=== PATIENT | male | born 1975 ===

== ENCOUNTER 2017-12-25 18:42 | Emergency (ER) | payer SELFPAY ==
[~2017-12-25] VITALS: Ht 170.2 cm; Wt 113.4 kg
[2017-12-25] MEDS ORDERED: ACETAMINOPHEN 500 MG TAB (TYLENOL) PO ONE (19:00)
[2017-12-25] MEDS ORDERED: IBUPROFEN 800 MG (MOTRIN) TAB PO ONE (19:00)
--- NOTE | 2017-12-25 19:00 | ED Upper Extremity ---
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 He fell at home just prior to arrival landing on the right shoulder. He is now unable to move it due to the pain. He did have two 24 ounce beers this evening Onset: this evening Severity: moderate Pain/Injury Location: right shoulder Modifying Factors: Worse With Movement Allergies and Home Medications Allergies Coded Allergies: No Known Drug Allergies (Unverified , 12/25/17) Home Medications Hydrocodone/Acetaminophen 1 Each Tablet, 1 EACH PO Q4H PRN for PAIN-MODERATE TO SEVERE Prescribed by: CYNTHIA DAVIS on 12/25/17 193 Patient Home Medication List Home Medication List Reviewed: Yes Constitutional: see HPI EENTM: see HPI Respiratory: no symptoms reported Cardiovascular: no symptoms reported Genitourinary: no symptoms reported Musculoskeletal: see HPI Skin: no symptoms reported Psychiatric/Neurological: No Symptoms Reported Past Gxlnehu-Ggtfbm-Bjrpby Hx Patient Social History Recent Foreign Travel: No Contact w/Someone Who Travel: No Physical Exam Vital Signs Capillary Refill : General Appearance: WD/WN, no apparent distress HEENT: PERRL/EOMI, normal ENT inspection Neck: non-tender, full range of motion Respiratory: normal breath sounds, no respiratory distress, no accessory muscle use Gastrointestinal: normal bowel sounds, non tender Shoulder: normal inspection, limited ROM, pain, soft tissue tenderness Elbow/Forearm: normal inspection, non-tender Wrist: Yes normal inspection, Yes non-tender (radial pulse is +2 equal bilaterally.) Hand: normal inspection, non-tender Neurologic/Psychiatric: alert, normal mood/affect, oriented x 3 Skin: normal color, warm/dry Progress/Results/Core Measures Results/Orders My Orders Orders - CYNTHIA DAVIS APRN Ibuprofen Tablet (Motrin Tablet) (12/25/17 19:00) Chest 1 View, Ap/Pa Only (12/25/17 18:56) Shoulder, Right, 3 Views (12/25/17 18:56) Acetaminophen Tablet (Tylenol Tablet) (12/25/17 19:00) Clonidine Tablet (Catapres Tablet) (12/25/17 19:15) Clonidine Tablet (Catapres Tablet) (12/25/17 19:02) Fentanyl Injection (Sublimaze Injection (12/25/17 19:15) Fentanyl Injection (Sublimaze Injection (12/25/17 19:14) Ns Iv 1000 Ml (Sodium Chloride 0.9%) (12/25/17 19:14) Shoulder, Right, 1 View (12/25/17 19:28) Fentanyl Injection (Sublimaze Injection (12/25/17 19:30) Ns Iv 1000 Ml (Sodium Chloride 0.9%) (12/25/17 19:30) Medications Given in ED Current Medications Medications Dose Ordered Sig/Tor Route Start Time Stop Time Status Last Admin Dose Admin Acetaminophen 500 mg ONCE ONCE PO 12/25/17 19:00 12/25/17 19:01 DC 12/25/17 19:10 500 MG Clonidine HCl 0.1 mg ONCE ONCE PO 12/25/17 19:15 12/25/17 19:16 DC 12/25/17 19:10 0.1 MG Fentanyl Citrate 50 mcg ONCE ONCE IVP 12/25/17 19:15 12/25/17 19:16 DC 12/25/17 19:18 50 MCG Fentanyl Citrate 50 mcg ONCE ONCE IVP 12/25/17 19:30 12/25/17 19:31 DC 12/25/17 19:30 50 MCG Ibuprofen 800 mg ONCE ONCE PO 12/25/17 19:00 12/25/17 19:01 DC 12/25/17 19:10 800 MG Departure Communication (Admissions) Progress Notes 1930-there was an anterior shoulder dislocation on initial x-ray. Patient was given 50 g of fentanyl x2, 800 mg of oral Motrin, 500 mg of oral Tylenol. He then interlaced his fingers around his knee while sitting in bed and leaned backwards gradually. After 2 attempts this did ultimately achieve reduction of shoulder dislocation. He was placed in a sling. Impression Impression: Primary Impression: Shoulder dislocation Disposition: 01 HOME, SELF-CARE Condition: Improved Departure-Patient Inst. Decision time for Depature: 19:31 Referrals: NO,LOCAL PHYSICIAN (PCP/Family) Primary Care Physician Patient Instructions: Shoulder Dislocation Add. Discharge Instructions: 1. Wear the shoulder immobilizer for the next 5 days. He may take it off to shower. Take pain medication as directed but do not mix it with alcohol. Scripts Hydrocodone/Acetaminophen ([place] 5-325 Tablet) 1 Each Tablet 1 EACH PO Q4H Y for PAIN-MODERATE TO SEVERE, #14 TAB Prov: CYNTHIA DAVIS APRN 12/25/17 CYNTHIA DAVIS APRN Dec 25, 2017 19:00
[2017-12-25] MEDS ORDERED: cloNIDine 0.1 MG (CATAPRES) TAB ONE (19:02)
[2017-12-25] MEDS ORDERED: NS IV 1000 ML 1,000 ML ONE (19:14)
[2017-12-25] MEDS ORDERED: fentaNYL INJECTION 100 MCG/2 ML AMP ONE (19:14)
[2017-12-25] MEDS ORDERED: fentaNYL INJECTION 100 MCG/2 ML AMP IVP ONE ×2 (19:15→19:30)
[2017-12-25] MEDS ORDERED: cloNIDine 0.1 MG (CATAPRES) TAB PO ONE (19:15)
[2017-12-25] MEDS ORDERED: NS IV 1000 ML 1,000 ML IV SCH (19:30)
[2017-12-25] MEDS ORDERED: HYDR-757 PO (19:33)
--- NOTE | 2017-12-25 19:33 | Diagnostic Imaging Report ---
EXAM: SHOULDER, RIGHT, 3 VIEWS INDICATION: Fall. Right shoulder pain. COMPARISON: None. FINDINGS: There is anterior dislocation of the right humeral head in relation to the glenoid fossa. Small depression of the superior lateral right humerus consistent with Hill-Sachs deformity. No osseous bony Bankart is identified. The visualized ribs are intact. Normal alignment of the acromioclavicular joint. IMPRESSION: 1. Anterior dislocation of the right humeral head. 2. Right Hill-Sachs deformity. 3. No bony Bankart injury is identified. Recommend repeat radiographs after reduction of the dislocation. Dictated by: Dictated on workstation # [id number]
--- NOTE | 2017-12-25 19:34 | Diagnostic Imaging Report ---
EXAM: CHEST 1 VIEW, AP/PA ONLY INDICATION: Fall. Right shoulder pain. COMPARISON: None. FINDINGS: Normal heart size and pulmonary vascularity. No dense consolidation, pleural effusion or pneumothorax. Anterior dislocation of the right humeral head in relation to the glenoid fossa. No fractures are seen. IMPRESSION: 1. Anterior dislocation of the right humeral head. 2. No acute cardiopulmonary findings. Dictated by: Dictated on workstation # [id number]
[2017-12-25 19:57] VITALS: BP 146/107
--- NOTE | 2017-12-25 19:59 | Diagnostic Imaging Report ---
Clinical indication: Postreduction right shoulder. Exam: X-ray of the right shoulder AP view only. Comparison: X-ray of the right shoulder dated 12/25/2017. Findings and impression: 1: There is interval reduction of the previously seen anterior right shoulder dislocation. The glenohumeral joint is intact, as visualized on AP view. There is no axillary or scapular Y view to confirm appropriate position of the humeral head in relation to the glenoid. 2: Again seen degenerative spurs involving the right acromioclavicular joint. Dictated by: Dictated on workstation # [id number]
== END 2017-12-25 19:57 | disposition home or self-care (01) ==
LOC: EDUNIT# 18:42 → ER 18:43
DX: S43.014A Anterior dislocation of right humerus, initial encounter (principal); W01.10XA Fall on same level from slipping, tripping and stumbling with subsequent striking against unspecified object, initial encounter; Y92.009 Unspecified place in unspecified non-institutional (private) residence as the place of occurrence of the external cause
CPT/HCPCS: 71045; 73020; 73030

== ENCOUNTER 2019-10-05 20:12 | Emergency (ER) | payer SELFPAY ==
[~2019-10-05] VITALS: Ht 172 cm; Wt 113.0 kg
[~2019-10-05 20:12] MED LIST: HYDR-4226 PO
[2019-10-05] MEDS ORDERED: AZITHROMYCIN 250 MG TAB (ZITHROMAX) PO ONE (20:45)
[2019-10-05] MEDS ORDERED: cefTRIAXone 1,000 MG/2.86 ml vial (IM ONLY) IM ONE (20:45)
[2019-10-05] MEDS ORDERED: TETANUS,DIPTH,PERTUSS P/F (BOOSTRIX) 0.5 ML VIAL IM ONE (20:45)
[2019-10-05] MEDS ORDERED: LIDOCAINE 1% INJ 20 ML 20 ML VIAL INJ ONE ×2 (20:45)
--- NOTE | 2019-10-05 20:48 | ED Integumentary General ---
General Chief Complaint: Skin/Wound Problems Stated Complaint: ABSCESS IN GROIN AREA Nursing Triage Note: PT TO ED W/ C/O POSS ABSCESS TO GROIN AREA NEAR PENIS PER ONSET X2-3 DAYS. Source: patient, other Exam Limitations: language barrier History of Present Illness Date Seen by Provider: Oct 05, 2019 Time Seen by Provider: 20:31 Initial Comments Patient presents to ER by private conveyance with chief complaint of left side of the penis shaft he has a round red painful nodule without any discharge started about 3 days ago progressively growing. No history of abscesses or sexually transmitted diseases. He is in a monogamous relationship with his . He does not follow with a doctor have any known significant medical history. Allergies and Home Medications Allergies Coded Allergies: No Known Drug Allergies (Unverified , 12/25/17) Home Medications Hydrocodone/Acetaminophen 1 Each Tablet, 1 EACH PO Q4H PRN for PAIN-MODERATE TO SEVERE Prescribed by: CYNTHIA DAVIS on 12/25/17 193 Patient Home Medication List Home Medication List Reviewed: Yes Review of Systems Review of Systems Constitutional: No chills, No diaphoresis EENTM: No ear discharge, No ear pain Respiratory: No cough, No short of breath Cardiovascular: No chest pain, No edema Gastrointestinal: No abdominal pain, No constipation, No diarrhea, No nausea Genitourinary: No discharge, No dysuria Musculoskeletal: No back pain, No joint pain Skin: see HPI Past Viiygls-Fcpwsa-Rjlsic Hx Patient Social History Alcohol Use: Occasionally Uses Alcohol Beverage of Choice: Beer Recreational Drug Use: No Smoking Status: Never a Smoker Recent Foreign Travel: No Contact w/Someone Who Travel: No Recent Infectious Disease Expo: No Past Medical History Surgeries: No Respiratory: No Cardiac: Yes Hypertension Neurological: No Genitourinary: No Gastrointestinal: No Musculoskeletal: No Endocrine: No HEENT: No Cancer: No Psychosocial: No Integumentary: No Physical Exam Vital Signs Vital Signs - First Documented 10/05/19 20:15 Temp 37.1 Pulse 100 Resp 20 B/P (MAP) 154/108 (123) Pulse Ox 94 O2 Delivery Room Air Capillary Refill : Less Than 3 Seconds General Appearance: WD/WN, no apparent distress HEENT: PERRL/EOMI, pharynx normal Neck: non-tender, full range of motion Cardiovascular: normal peripheral pulses, regular rate, rhythm Respiratory: no respiratory distress, no accessory muscle use Neurologic/Psychiatric: alert, normal mood/affect, oriented x 3 Skin: other (left side of the penis shaft has a 2 x 3 cm 1 cm raised fluctuant nodule with a blackened ecchymotic pointing consistent with abscess.) Procedures/Interventions I&D : Site: left shaft penis Blade Size: 11 I & D Procedure: betadine prep Progress Risks, benefits and alternatives as well as procedure was explained and the pa tient consented. We clean the site using Betadine and then alcohol and infiltrated with 3 cc of 1% lidocaine without epinephrine. We then ascertained that he was properly anesthetized and so used an 11 blade scapula make a cross case incision draining approximately 45 cc of loose, malodorous, purulent material. We obtained a culture of the fluid. We then used the sterile cotton tip applicator to probe the wound and remove any loculations. Then flushed with 20 cc normal saline and lightly dressed with gauze 4 x 4's. Patient tolerated procedure well. Progress/Results/Core Measures Results/Orders My Orders Orders - SCOOTER TORRES Lidocaine 1% Inj 20 Ml (Xylocaine 1% Inj (10/05/19 20:45) Syphilis Antibody Screen (10/05/19 20:37) Ua Culture If Indicated (10/05/19 20:37) Chlamydia Trachomatis Urine (10/05/19 20:37) Neis Rustam Dna Urine Test (10/05/19 20:37) Vital Signs/I&O 10/05/19 20:15 Temp 37.1 Pulse 100 Resp 20 B/P (MAP) 154/108 (123) Pulse Ox 94 O2 Delivery Room Air Blood Pressure Mean: 123 POS Progress Progress Note : Time: 20:53 Progress Note Urinalysis, RPR, GC, chlamydia. Culture the wound. Get him up-to-date on tetanus vaccination. We'll give him Rocephin and azithromycin today and put him out on Bactrim. Departure Impression Primary Impression: Abscess Disposition: 01 HOME, SELF-CARE Condition: Stable Departure-Patient Inst. Decision time for Depature: 20:55 Referrals: NO,LOCAL PHYSICIAN (PCP/Family) Primary Care Physician Patient Instructions: Abscess Incision and Drainage (DC) Add. Discharge Instructions: Tomorrow merchandise pickup/receiving associate the Bactrim and take one tablet twice a day with food for the next 5 days. Keep the site clean with soap and water. Do not apply triple antibiotic ointment or Vaseline. You may loosely placed gauze around it to catch the drainage. Expect the skin to heal up over the next couple days. If you have a reaccumulation of abscess and the need to return to the ER or your primary care doctor for repeat incision and drainage. All discharge instructions reviewed with patient and/or family. Voiced understanding. Scripts Sulfamethoxazole/Trimethoprim (Bactrim Ds Tablet) 1 Each Tablet 1 EACH PO BID for 5 Days, #10 TAB 0 Refills Prov: SCOOTER TORRES 10/05/19 Work/School Note: Work Release Form Date Seen in the Emergency Department: Oct 05, 2019 Return to Work: Oct 08, 2019 Restrictions: No Restrictions SCOOTER TORRES Oct 05, 2019 20:48 POS
[2019-10-05] MEDS ORDERED: SULF1TAB35 PO (20:56)
[2019-10-05 20:59] LABS: BILIRUBIN,URINE NEGATIVE (NEGATIVE); CLARITY,URINE CLEAR; COLOR,URINE YELLOW; GLUCOSE, URINE (UA) 3+ (NEGATIVE); KETONES,URINE NEGATIVE (NEGATIVE); LEUKOCYTE ESTERASE ,URINE NEGATIVE (NEGATIVE); NITRITE,URINE NEGATIVE (NEGATIVE); PH,URINE 5.5 (5-9); PROTEIN,URINE NEGATIVE (NEGATIVE)
[2019-10-05 21:22] VITALS: BP 148/98
[2019-10-05 21:33] LABS: BACTERIA,URINE NEGATIVE /HPF; SQUAMOUS EPITHELIAL CELL,UR 0-2 /HPF
== END 2019-10-05 21:22 | disposition home or self-care (01) ==
LOC: EDUNIT# 20:12 → ER 20:13
DX: L02.214 Cutaneous abscess of groin (principal); I10 Essential (primary) hypertension
CPT/HCPCS: 10060; 36415; 81000; 86780; 87070; 87077; 87205; 87491; 87591; 90471; 90715; 96372